=== PATIENT | male | born 1980 | race Two or more races ===

== ENCOUNTER 2022-12-10 15:24 | Outpatient (REF) | payer MEDICAID, OTHER, SELFPAY ==
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
== END 2022-12-10 15:25 | disposition home or self-care (01) ==
LOC: HO.HHCX 15:24
PROVIDERS: Visit Provider Pediatrics
DX: S06.9X5D Unspecified intracranial injury with loss of consciousness greater than 24 hours with return to pre-existing conscious level, subsequent encounter (principal); M25.511 Pain in right shoulder
CPT/HCPCS: 73000; 73030

== ENCOUNTER 2023-01-07 11:11 | Emergency (ER) | payer MEDICAID, SELFPAY ==
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
[2023-01-07 11:19] VITALS: BP 131/95; PULSE 70; RESP 16; TEMP 36.7; O2SAT 99; BMI 19.7
--- NOTE | 2023-01-07 11:27 | ECG_ITS ---
Test Reason : DIZZINESS Blood Pressure : / mmHG Vent. Rate : 065 BPM Atrial Rate : 065 BPM P-R Int : 152 ms QRS Dur : 088 ms QT Int : 382 ms P-R-T Axes : 065 061 053 degrees QTc Int : 397 ms Normal sinus rhythm diffuse st elev Possible Early repolarization RSR' or QR pattern in V1 suggests right ventricular conduction delay Abnormal ECG No previous ECGs available Referred By: Li Mims Electronically Signed By:GRACY SMITH MD
[2023-01-07 11:59] VITALS: BP 117/93; PULSE 68; RESP 18; TEMP 36.7; O2SAT 100
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
[2023-01-07 12:27] LABS: MANUAL DIFF FLAG NO
[2023-01-07 12:28] VITALS: BP 119/84; BP 135/97; PULSE 62; PULSE 64
[2023-01-07 12:29] VITALS: BP 124/96; PULSE 74
[2023-01-07 12:30] LABS: Basophils Percent Auto 0.7 % (0-2); Eosinophils Absolute Auto 0.1 X10*3/uL (0.0-0.4); Eosinophils Percent Auto 1.5 % (0-4); Hemoglobin 14.9 g/dl (14.0-18.0); Imm Gran Abs Auto 0.01 X10*3/uL (0.00-0.03); Imm Gran Pct Auto 0.2 % (0.0-0.4); Lymphocytes Absolute Auto 1.6 X10*3/uL (1.2-4.9); Lymphocytes Percent Auto 40.9 % (20-40); Mean Corpuscular HGB Conc 33.1 g/dl (31.0-36.0); Mean Corpuscular Hemoglobin 28.8 pg (27.0-33.0); Mean Platelet Volume 11.4 fL (9.4-12.4); Monocytes Absolute Auto 0.3 X10*3/uL (0.1-1.2); Monocytes Percent Auto 6.5 % (2-11); Neutrophils Percent Auto 50.2 % (45-73); Platelet Count 164 X10*3/uL (160-400); Red Blood Count 5.17 X10*6/uL (4.60-5.80); Red Cell Distribution Width 11.9 % (11.0-16.0)
--- NOTE | 2023-01-07 12:32 | PC.NURSE ---
Calm and cooperative, resting comfortably with eyes closed. No s/s of withdrawal symptoms at this time.
[2023-01-07 12:43] LABS: Alanine Aminotransferase 32 U/L (0-40); Albumin Level 5.1 g/dL (3.5-5.0); Alkaline Phosphatase 81 U/L (39-117); Anion Gap 12 (12-20); Aspartate Amino Transferase 33 U/L (5-37); Bilirubin Total 0.3 mg/dL (0.0-1.0); Blood Urea Nitrogen 10 mg/dL (9-16); Calcium 10.2 mg/dL (8.4-10.2); Carbon Dioxide 27 mmol/L (22-29); Chloride 103 mmol/L (96-108); Creatinine Clr Calc Pharmacy 88.7; Estimated Glomerular Filt Rate > 60; Glucose Random 79 mg/dL (60-115); Potassium 4.4 mmol/L (3.3-5.1); Sodium 138 mmol/L (135-145); Total Protein 8.6 g/dL (6.5-8.0)
[2023-01-07 12:53] LABS: Troponin-I High Sensitivity < 2.7 ng/L (<3.5-35.0)
[2023-01-07 13:02] LABS: INTERNATIONAL NORM RATIO 0.9 (0.9-1.1); Prothrombin Time 11.5 SEC (11.1-13.3)
[2023-01-07 14:40] VITALS: BP 123/85; PULSE 68; RESP 18; O2SAT 100
== END 2023-01-07 15:35 | disposition home or self-care (01) ==
PROVIDERS: Nurse Practitioner Family; Registered Nurse Emergency; Emergency Provider Emergency Medicine
DX: F07.81 Postconcussional syndrome (principal); R42 Dizziness and giddiness; M79.10 Myalgia, unspecified site; R51.9 Headache, unspecified; R94.31 Abnormal electrocardiogram [ECG] [EKG]; Z79.899 Other long term (current) drug therapy
CPT/HCPCS: 36415; 80053; 84484; 85025; 85610; 93005; 99283; 99284